=== PATIENT | male | born 1935 | race Asian ===

== ENCOUNTER 2020-03-30 17:29 | Emergency (ER) | payer OTHER ==
[~2020-03-30] VITALS: Ht 162.6 cm; Wt 71.7 kg
[2020-03-30 21:13] LABS: ABSOLUTE NEUTROPHILS 6.4 thou/uL (1.4-8.2); EOSINOPHILS 0.9 % (0.0-3.0); HEMATOCRIT 46.8 % (42.0-52.0); HEMOGLOBIN 16.1 gm/dL (14.0-18.0); LYMPHOCYTES 19.9 % (24.0-44.0); MCH 30.5 pg (26.0-34.0); MCHC 34.4 g/dL (28.0-37.0); MCV 88.7 fL (80.0-100.0); MONOCYTES 9.3 % (1.0-8.0); PLATELET COUNT 207 thou/uL (150-400); POLYS 68.9 % (36.0-66.0); RBC 5.28 mil/uL (4.50-6.00); RDW 13.6 % (10.5-14.5); WBC 9.3 thou/uL (4.0-11.0)
[2020-03-30 21:20] LABS: CALCIUM 9.3 mg/dL (8.5-10.1); CREATININE 1.1 mg/dL (0.7-1.3); MAGNESIUM 2.1 mg/dL (1.8-2.4); POTASSIUM 4.3 mmol/L (3.5-5.1)
[2020-03-30 23:35] VITALS: BP 139/93
--- NOTE | 2020-03-31 09:37 | EKG ---
[facility] [place] [address] ELECTROCARDIOGRAM REPORT Name: FRANKLIN COLLINS Room #: DEP [facility].#: [id number] Admission: 03/30/20 Attend Phys: Discharge: 03/30/20 Date of : 31 Report #: [id number] THIS REPORT FOR: cc: Kelly Patel MD, Ramilo MD Lundgren,David Angel MD [facility] ~ THIS REPORT FOR: //name// [facility] ED Test Date: 2020-03-30 Test Time: 21:48:34 Pat Name: FRANKLIN COLLINS Department: Room: Gender: [employer]: [id number] : 1935 Requested By: Moe Braden Order Number: [id number] MD: David Arreaga Measurements Intervals [place] Rate: 107 P: 25 GA: 182 QRS: -42 QRSD: 85 T: 106 QT: 338 QTc: 451 Interpretive Statements Sinus tachycardia with frequent atrial premature complexes Abnormal R-wave progression, late transition Inferior infarct, old No previous ECG available for comparison Electronically Signed On 03-31-2020 9:37:24 CDT by David Arreaga [email or web address] <ELECTRONICALLY SIGNED> By: David Arreaga MD, [facility] 03/31/20 0937 [id number] David Arreaga MD, [facility] /EPI
== END 2020-03-30 23:36 ==
LOC: ER 17:29
PROVIDERS: Emergency Medicine
DX: R45.1 Restlessness and agitation (principal); E11.9 Type 2 diabetes mellitus without complications; E78.5 Hyperlipidemia, unspecified